=== PATIENT | female | born 2000 | race Caucasian/White ===

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

== ENCOUNTER 2019-02-22 21:59 | Emergency (ER) | payer SELFPAY ==
[2019-02-22 22:08] VITALS: BP 125/88; PULSE 93
--- NOTE | 2019-02-22 22:54 | EDM.PDOC ---
ED HPI GENERAL MEDICAL PROBLEM - General Chief Complaint: Chest Pain Stated Complaint: CHEST TIGHTNESS Time Seen by Provider: 02/22/19 22:00 Source of Information: Reports: Patient History Limitations: Reports: No Limitations - History of Present Illness INITIAL COMMENTS - FREE TEXT/NARRATIVE: This is a 18-year-old female. She comes tonight because she is having fluttering in her chest. With the fluttering she gets some tightness and she gets somewhat nervous. She was seen in [facility] ER last week for the same symptoms. They frantz blood and stated everything was normal and her EKG was normal they apparently gave her a beta shawn IV she thinks to calm her heart down. She continues to have the episodic fluttering though it is seems to be random in very short lived. She's not had any recent episodes where she's passed out. She comes tonight because she is still having the fluttering. She has no history of severe anxiety. She denies any caffeine use and she is stopping smoking and she does not drink. She cannot think of any other reason why she might have the fluttering. She was not given a Holter monitor and Joo but we are going to do that here and the report is to go to Dr. Peña. Chest Pain Score (Numeric/FACES): 7 - Related Data Allergies Allergy/AdvReac Type Severity Reaction Status Date / Time bupropion [From Wellbutrin] Allergy Anaphylactic Verified 08/05/17 09:34 Shock Home Meds: Home Meds . [No Known Home Meds] 02/22/19 [History] Past Medical History - Past Health History Medical/Surgical History: Denies Medical/Surgical History Psychiatric History: Reports: Anxiety, Depression Social & Family History - Tobacco Use Smoking Status *Q: Former Smoker Used Tobacco, but Quit: Yes Month/Year Tobacco Last Used: 2 days - Caffeine Use Caffeine Use: Reports: Soda - Recreational Drug Use Recreational Drug Type: Reports: Marijuana/Hashish Other Recreational Drug Type: daily ED ROS GENERAL - Review of Systems Review Of Systems: See Below Constitutional: Denies: Fever, Chills HEENT: Reports: No Symptoms Respiratory: Denies: Shortness of Breath, Cough Cardiovascular: Reports: Chest Pain, Palpitations Endocrine: Reports: No Symptoms GI/Abdominal: Reports: No Symptoms : Reports: No Symptoms Musculoskeletal: Reports: No Symptoms Skin: Reports: No Symptoms Neurological: Reports: No Symptoms Psychiatric: Reports: Anxiety ED EXAM, GENERAL - Physical Exam Exam: See Below Exam Limited By: No Limitations General Appearance: Alert, WD/WN, No Apparent Distress Eye Exam: Bilateral Eye: Normal Inspection Ears: Normal External Exam Nose: Normal Inspection Throat/Mouth: Normal Inspection, Normal Lips, Normal Voice, No Airway Compromise Head: Normocephalic Neck: Supple Respiratory/Chest: No Respiratory Distress, Lungs Clear, Normal Breath Sounds Cardiovascular: Regular Rate, Rhythm, No Murmur GI/Abdominal: Soft, Non-Tender Back Exam: Full Range of Motion Extremities: Normal Inspection, Normal Range of Motion Neurological: Alert, Oriented Psychiatric: Normal Affect, Normal Mood Skin Exam: Warm, Dry EKG INTERPRETATION EKG Date: 02/22/19 Time: 22:15 EKG Interpretation Comments: EKG shows a normal sinus rhythm rate of 90, no acute ST or T-wave changes, no ischemia noted, there is no skipped beats or extra beats noted. Course - Vital Signs Last Recorded V/S: Last Vital Signs Temp 98.1 F 02/22/19 22:06 Pulse 93 02/22/19 22:06 Resp 15 02/22/19 22:06 BP 125/88 02/22/19 22:06 Pulse Ox 100 02/22/19 22:06 - Orders/Labs/Meds Orders: Active Orders 24 hr Category Date Time Status EKG Documentation Completion [RC] ASDIRECTED Care 02/22/19 22:09 Active Holter Monitor 48 Hours [RC] .PRN Care 02/22/19 22:46 Ordered EKG 12 Lead [EK] Stat Ther 02/22/19 22:08 Ordered - Re-Assessments/Exams Free Text/Narrative Re-Assessment/Exam: 02/22/19 22:57 I spoke to the patient at length regarding the Holter monitor and her need to document and she has the fluttering sensation so that when they read the strip they will be able to see the rhythm she was having when she had the fluttering. The report will be sent to Dr. Peña and she is to follow-up with Dr. Peña. Departure - Departure Time of Disposition: 22:58 Disposition: Home, Self-Care 01 Condition: Good Clinical Impression: Palpitations Instructions: Palpitations, [id number] Referrals: Ena Lloyd MD [Primary Care Provider] - Additional Instructions: YouU had a Holter placed on you in the ER, please keep accurate record of when you have the fluttering so they will be able to look at the strip and figure out what is causing that sensation of fluttering, if there's marked worsening of your symptoms return to the ER, with a Holter monitor on do normal daily activities and do not change that, follow up with Dr. Peña for the results of the Holter monitor, you might want to call her office first to make sure they have the results before you make an appointment - My Orders Last 24 Hours: My Active Orders 02/22/19 22:08 EKG 12 Lead [EK] Stat 02/22/19 22:09 EKG Documentation Completion [RC] ASDIRECTED 02/22/19 22:46 Holter Monitor 48 Hours [RC] .PRN - Assessment/Plan Last 24 Hours: My Active Orders 02/22/19 22:08 EKG 12 Lead [EK] Stat 02/22/19 22:09 EKG Documentation Completion [RC] ASDIRECTED 02/22/19 22:46 Holter Monitor 48 Hours [RC] .PRN
== END 2019-02-22 23:15 | disposition home or self-care (01) ==
LOC: JD.ED 21:59
DX: R00.2 Palpitations (principal); Z88.8 Allergy status to other drugs, medicaments and biological substances; Z87.891 Personal history of nicotine dependence
CPT/HCPCS: 93005; 93010; 93225; 93226; 99283; 99284-25

== ENCOUNTER 2021-07-02 12:04 | Inpatient (IN) | payer MEDICAID ==
[2021-07-02] MEDS ORDERED: Sodium Chloride 0.9% 10 ML Syringe FLUSH PRN (12:50)
[2021-07-02] MEDS ORDERED: Ondansetron 4 MG/2 ML SDV IVPUSH PRN (12:50)
[2021-07-02] MEDS ORDERED: Lidocaine 1% 50 ML MDV INJECT ONE (12:50)
[2021-07-02] MEDS ORDERED: Nalbuphine 10 MG/1 ML Vial IVPUSH PRN (12:50)
[2021-07-02] MEDS ORDERED: Lactated Ringers 1,000 ML IV SCH (13:00)
[2021-07-02] MEDS ORDERED: Oxytocin/Lactated Ringers 10 UNIT/1,000 ML BAG IV SCH ×2 (13:00)
[2021-07-02] MEDS ORDERED: fentaNYL 100 MCG/2 ML SDV EPIDUR PRN (14:59)
[2021-07-02] MEDS ORDERED: Bupivacaine/fentaNYL/NS 100 ML Bag EPIDUR PRN (14:59)
[2021-07-02] MEDS ORDERED: diphenhydrAMINE 50 MG/ML SDV IVPUSH PRN (14:59)
[2021-07-02] MEDS ORDERED: ePHEDrine 50 MG/ML SDV IVPUSH PRN (14:59)
[2021-07-02] MEDS ORDERED: Lidocaine 1% 50 ML MDV ONE (15:52)
[2021-07-02] MEDS ORDERED: Docusate Sodium 100 MG Cap PO PRN (16:22)
[2021-07-02] MEDS ORDERED: Witch Hazel Medicated Pads 40/Jar TOP PRN (16:22)
[2021-07-02] MEDS ORDERED: Acetaminophen 325 MG Tab PO PRN (16:22)
[2021-07-02] MEDS ORDERED: Benzocaine/Menthol 20%-0.5% Spray 78 GM Cannister TOP PRN (16:22)
[2021-07-02] MEDS: Ibuprofen 600 MG Tab PO PRN (18:12)
[2021-07-02] MEDS ORDERED: Sodium Chloride 0.9% 10 ML Syringe FLUSH SCH (21:00)
[2021-07-03 04:53] VITALS: PULSE 79
[2021-07-03] MEDS: Ibuprofen 600 MG Tab PO PRN (07:36)
[2021-07-03 10:54] VITALS: BP 101/51
== END 2021-07-03 16:45 | disposition home or self-care (01) | DRG 807 ==
LOC: JD.OBCHECK 12:04 → JD.OB 12:08 → JD.OBCHECK 12:08 → UNDOFXCLIRRACCOM 12:11 → JD.OB 12:50 → UNDOADMOB 12:50 → JD.OB 12:50 → UNDOFXCLIACCOM 12:50 → JD.OBCHECK 12:51 → JD.OB 15:34 → JD.OBCHECK 15:34 → JD.OB 15:46 → INTOOBSV 15:46 → OBSVTOIN 15:46 → JD.OB 15:47 → UNDODISIN 07-03 16:45
PROVIDERS: ADMIT Obstetrics & Gynecology; ATTEND Obstetrics & Gynecology
PROC: 10E0XZZ Delivery of Products of Conception, External Approach (ICD-10-PCS; principal; 2021-07-02)
PROC: 0HQ9XZZ Repair Perineum Skin, External Approach (ICD-10-PCS; 2021-07-02)
DX: O70.0 First degree perineal laceration during delivery (principal); Z37.0 Single live birth; Z3A.39 39 weeks gestation of pregnancy; Z20.822 Contact with and (suspected) exposure to COVID-19
CPT/HCPCS: 36415; 59025; 59409; 84112; 85025; 86592; 86850; 86900; 86901; A9270-GY; J2001; J2590; J3010; J7120; U0002